=== PATIENT | female | born 2000 | race Caucasian/White ===

== ENCOUNTER 2020-10-25 00:48 | Emergency (ER) | payer OTHER ==
[~2020-10-25] VITALS: Ht 160 cm; Wt 108.9 kg
[2020-10-25 00:56] VITALS: BP 149/102; Ht 160 cm; Wt 108.9 kg
[2020-10-25] MEDS ORDERED: OTHER (00:58)
[2020-10-25] MEDS ORDERED: BACTRIM DS TAB1 EAC1 PO (01:19)
[2020-10-25] MEDS ORDERED: MEDROL DOSE PACK4 MG PO (01:19)
== END 2020-10-25 03:07 | disposition home or self-care (01) ==
LOC: D.ER 00:48
DX: J32.9 Chronic sinusitis, unspecified (principal); R42 Dizziness and giddiness